=== PATIENT | male | born 1960 | race Caucasian/White ===

== ENCOUNTER 2017-08-31 07:21 | Outpatient (CLI) | payer OTHER ==
--- NOTE | 2017-08-31 10:29 | MRI ---
MRI OF RIGHT KNEE PERFORMED WITHOUT CONTRAST ENHANCEMENT: History: Patient twisted her knee approximately one month ago. FINDINGS: The ACL fibers are seen but there is no attachment seen at its femoral attachment suggesting a comple te proximal tear. Posterior cruciate ligament is intact. The lateral meniscus is normal in shape and appearance. There is a displaced flap type tear of the me dial meniscus. There is tissue displacement in the meniscal tibial recess. There is significant inter nal mucoid degeneration. The tear extends to involve the posterior horn and body region of the menisc us. There appears to be a tear within a very degenerated appearing meniscus. There is associated medi al compartment joint space narrowing. There is irregularity of the subchondral bony plate along the m edial margin of the tibia and underlying subchondral marrow edema change. Medial and lateral collateral ligaments and iliotibial band regions are unremarkable. Patellar articular cartilage is intact. Medial and lateral patellar retinaculum, quadriceps and rosa lar tendons are normal. IMPRESSION: 1. Proximal ACL tear. 2. Tear involving the posterior horn and body of the medial meniscus appears to be more of a flap typ e tear with some meniscal tissue displacement to the meniscal tibial recess. There appear to be fairl y significant interval mucoid degeneration of the posterior horn and body associated with the tear. T here is an associated area of marrow edema change along the medial edge of the femoral condyle which is felt to be on the basis of the meniscal injury and what appears to be a subchondral insufficiency fracture. POS: OFF
== END 2017-08-31 07:22 | disposition home or self-care (01) ==
LOC: MRI 07:21
PROVIDERS: ATTEND Orthopaedic Surgery
DX: M25.561 Pain in right knee (principal); S83.511A Sprain of anterior cruciate ligament of right knee, initial encounter

== ENCOUNTER 2020-09-19 08:56 | Outpatient (CLI) | payer OTHER | END 2020-09-19 08:57 | disposition home or self-care (01) | LOC: TBSIIMAG 08:56 | PROVIDERS: ATTEND Physician Assistant | DX: M25.522 Pain in left elbow (principal); M25.422 Effusion, left elbow; S56.512A Strain of other extensor muscle, fascia and tendon at forearm level, left arm, initial encounter; S53.442A Ulnar collateral ligament sprain of left elbow, initial encounter; W00.0XXA Fall on same level due to ice and snow, initial encounter ==

== ENCOUNTER 2020-12-11 18:00 | Inpatient (IN) | payer OTHER ==
[2020-12-19 14:22] VITALS: BMI 26.9
[2020-12-23] MEDS ORDERED: Tranexamic Acid 1,000 MG/10 ML VIAL ONE ×2 (07:52→14:00)
[2020-12-23] MEDS ORDERED: Sodium Chloride 0.9% 100 ML ONE (07:53)
[2020-12-23] MEDS ORDERED: Midazolam HCl 2 mg/2 ml Vial ONE ×2 (08:03→08:54)
[2020-12-23] MEDS ORDERED: Fentanyl 100 MCG/2 ML VIAL ONE ×4 (08:03→12:58)
[2020-12-23] MEDS ORDERED: Vancomycin 1.5 GRAM/300 ML BAG 1.5 GM in Premix Bag 1 BAG IVPB SCH ×2 (08:15→21:00)
[2020-12-23] MEDS ORDERED: EPINEPHrine 1 MG/ML AMP ONE (09:07)
[2020-12-23] MEDS ORDERED: Bupivacaine 0.25% HCL 30 ML VIAL ONE ×2 (09:07→09:24)
[2020-12-23] MEDS ORDERED: Famotidine/PF 20 mg/2ml Vial ONE (09:24)
[2020-12-23] MEDS ORDERED: Ondansetron PF 4 MG/2 ML Vial ONE (09:40)
[2020-12-23] MEDS ORDERED: Glycopyrrolate 0.2 MG/ML 5 ML SYRINGE ONE (09:40)
[2020-12-23] MEDS ORDERED: Lidocaine 1.5% w/Epi 1:200K 30 ML VIAL (Epid Use) ONE (09:40)
[2020-12-23] MEDS ORDERED: Ketorolac Tromethamine 30 MG/ML VIAL ONE (09:40)
[2020-12-23] MEDS ORDERED: ePHEDrine Sulfate 50 MG/10 ML VIAL ONE (09:40)
[2020-12-23] MEDS ORDERED: Lidocaine 1% PF 5 ML VIAL ONE (09:40)
[2020-12-23] MEDS ORDERED: Dexamethasone 20 MG/5 ML VIAL ONE (09:40)
[2020-12-23] MEDS ORDERED: PHENYLEPHRINE-NS 100 MCG/ML 10 ML SYRINGE ONE (09:40)
[2020-12-23] MEDS ORDERED: PROPOFOL 200 MG/20 ML VIAL ONE (09:40)
[2020-12-23] MEDS ORDERED: Promethazine HCl 25 MG/ML VIAL IM PRN ×3 (10:00→13:25)
[2020-12-23] MEDS ORDERED: Naloxone HCl 0.4 mg/ml Vial IV PRN (10:00)
[2020-12-23] MEDS ORDERED: Bupivacaine 0.25% 10 ML VIAL EPIDURAL PRN (10:00)
[2020-12-23] MEDS ORDERED: HYDROcodone/Acetaminophen 5/325 mg Tablet PO PRN (10:00)
[2020-12-23] MEDS ORDERED: Promethazine HCl 25 MG SUPP PR PRN (10:00)
[2020-12-23] MEDS ORDERED: Zolpidem Tartrate 5 MG TAB PO PRN ×2 (10:00→13:25)
[2020-12-23] MEDS ORDERED: diphenhydrAMINE 50 MG/ML VIAL IM PRN (10:00)
[2020-12-23] MEDS ORDERED: Ondansetron PF 4 MG/2 ML Vial IVP PRN ×2 (10:00→13:25)
[2020-12-23] MEDS ORDERED: Hydrocerin (Eucerin) Cream 120 gm Jar TOP PRN (10:00)
[2020-12-23] MEDS ORDERED: Naloxone HCl 0.4 mg/ml Vial IVP PRN (10:00)
[2020-12-23] MEDS ORDERED: traMADol HCl 50 MG TAB PO PRN ×2 (10:00→13:25)
[2020-12-23] MEDS ORDERED: Meperidine HCl/PF 25 MG/ML VIAL SLOW IVP PRN (10:43)
[2020-12-23] MEDS ORDERED: Promethazine HCl 25 MG/ML VIAL IVPB PRN (10:43)
[2020-12-23] MEDS ORDERED: PACU-Morphine 4MG/ML VIAL SLOW IVP PRN (10:43)
[2020-12-23] MEDS ORDERED: Fentanyl 100 MCG/2 ML VIAL SLOW IVP PRN ×2 (13:25)
[2020-12-23] MEDS ORDERED: HYDROcodone/Acetaminophen 10/325 mg Tablet PO PRN ×2 (13:25)
[2020-12-23] MEDS ORDERED: diphenhydrAMINE 25 MG CAP PO PRN (13:25)
[2020-12-23] MEDS ORDERED: Ketorolac Tromethamine 30 MG/ML VIAL IVP SCH (14:00)
[2020-12-23] MEDS ORDERED: diphenhydrAMINE 50 MG/ML VIAL ONE (14:41)
[2020-12-23] MEDS: Ketorolac Tromethamine 30 MG/ML VIAL IVP SCH ×2 (16:08→17:00)
[2020-12-23] MEDS: CEFAZOLIN 2 GM in Premix Bag 1 BAG IVPB SCH (17:00)
[2020-12-23] MEDS: Dextrose 5 %-0.45 % NaCl 1,000 ML IV SCH (17:03)
[2020-12-23] MEDS ORDERED: Docusate 100 MG CAP PO PRN (18:31)
[2020-12-23] MEDS: Carvedilol 3.125 MG TAB PO SCH (20:09)
[2020-12-23] MEDS: Rosuvastatin 10 MG TAB PO SCH (20:09)
[2020-12-23] MEDS: Amlodipine 5 MG TAB PO SCH (20:09)
[2020-12-23] MEDS: Aspirin 81 mg Enteric Coated Tablet PO SCH (20:09)
[2020-12-23] MEDS: Lisinopril/Hydrochlorothiazide 20 mg/12.5 mg Tablet PO SCH (20:09)
[2020-12-24] MEDS: diphenhydrAMINE 50 MG/ML VIAL IVP PRN ×3 (00:03→09:34)
[2020-12-24] MEDS: Ketorolac Tromethamine 30 MG/ML VIAL IVP SCH ×5 (00:03→23:28)
[2020-12-24] MEDS: CEFAZOLIN 2 GM in Premix Bag 1 BAG IVPB SCH (00:04)
[2020-12-24] MEDS: Dextrose 5 %-0.45 % NaCl 1,000 ML IV SCH ×3 (01:25→21:51)
[2020-12-24 05:56] LABS: Hemoglobin 10.7 g/dL (14.0-18.0); Mean Corpuscular HGB CONC 34.5 g/dL (32.0-36.0); Mean Corpuscular Hemoglobin 34.4 pg (27.0-31.0); Mean Corpuscular Volume 99.7 fL (78.0-98.0); Mean Platelet Volume 7.7 fL (7.4-10.4); Platelet Count 166 thou/uL (130-400); Red Blood Cell (RBC) Count 3.12 mill/uL (4.70-6.10); White Blood Cell (WBC) Count 16.7 thou/uL (4.8-10.8)
[2020-12-24 06:09] LABS: Anion Gap 10 mmol/L (10-20); BUN (Urea Nitrogen) 11 mg/dL (8.4-25.7); Calc. Creatinine Clearance 139 mL/min (70-130); Calcium 8.7 mg/dL (7.8-10.44); Carbon Dioxide 28 mmol/L (22-29); Chloride 96 mmol/L (98-107); Glucose 137 mg/dL (70-105); Sodium 130 mmol/L (136-145)
[2020-12-24] MEDS: fentaNYL Citrate/PF 500 MCG, Bupivacaine 10 ML in Sodium Chloride 0.9% 80 ML EPIDURAL SCH (06:42)
[2020-12-24] MEDS: Ferrous Gluconate 324 MG TAB PO SCH ×2 (09:16→17:02)
[2020-12-24] MEDS: Carvedilol 3.125 MG TAB PO SCH ×3 (09:17→21:46)
[2020-12-24] MEDS: Senokot S 8.6-50 MG TAB PO SCH ×2 (09:17→20:31)
[2020-12-24] MEDS: Multivitamin W/ Minerals 1 TAB PO SCH (09:17)
[2020-12-24] MEDS: Aspirin 81 mg Enteric Coated Tablet PO SCH ×2 (09:17→20:31)
[2020-12-24] MEDS: Lisinopril/Hydrochlorothiazide 20 mg/12.5 mg Tablet PO SCH ×2 (09:18→20:15)
[2020-12-24] MEDS: HYDROcodone/Acetaminophen 5/325 mg Tablet PO PRN ×2 (09:34→17:02)
[2020-12-24] MEDS: diphenhydrAMINE 25 MG CAP PO PRN (17:02)
[2020-12-24] MEDS: Amlodipine 5 MG TAB PO SCH (20:14)
[2020-12-24] MEDS: Rosuvastatin 10 MG TAB PO SCH (20:39)
[2020-12-25] MEDS: diphenhydrAMINE 25 MG CAP PO PRN (04:20)
[2020-12-25] MEDS: HYDROcodone/Acetaminophen 5/325 mg Tablet PO PRN (04:21)
[2020-12-25] MEDS: fentaNYL Citrate/PF 500 MCG, Bupivacaine 10 ML in Sodium Chloride 0.9% 80 ML EPIDURAL SCH (04:23)
[2020-12-25 06:02] LABS: Hemoglobin 8.6 g/dL (14.0-18.0); Mean Corpuscular HGB CONC 34.5 g/dL (32.0-36.0); Mean Corpuscular Hemoglobin 34.4 pg (27.0-31.0); Mean Corpuscular Volume 99.6 fL (78.0-98.0); Mean Platelet Volume 8.1 fL (7.4-10.4); Platelet Count 134 thou/uL (130-400); White Blood Cell (WBC) Count 12.7 thou/uL (4.8-10.8)
[2020-12-25 06:27] LABS: Anion Gap 11 mmol/L (10-20); BUN (Urea Nitrogen) 21 mg/dL (8.4-25.7); Calc. Creatinine Clearance 100 mL/min (70-130); Calcium 8.1 mg/dL (7.8-10.44); Carbon Dioxide 26 mmol/L (22-29); Chloride 92 mmol/L (98-107); Glucose 120 mg/dL (70-105); Potassium 3.9 mmol/L (3.5-5.1); Sodium 125 mmol/L (136-145)
[2020-12-25] MEDS: Dextrose 5 %-0.45 % NaCl 1,000 ML IV SCH (06:38)
[2020-12-25] MEDS: Ketorolac Tromethamine 30 MG/ML VIAL IVP SCH (07:05)
[2020-12-25] MEDS: Multivitamin W/ Minerals 1 TAB PO SCH (09:53)
[2020-12-25] MEDS: Ferrous Gluconate 324 MG TAB PO SCH ×2 (09:53→18:25)
[2020-12-25] MEDS: Aspirin 81 mg Enteric Coated Tablet PO SCH ×2 (09:53→20:35)
[2020-12-25] MEDS: Senokot S 8.6-50 MG TAB PO SCH ×2 (09:53→20:35)
[2020-12-25] MEDS: Carvedilol 3.125 MG TAB PO SCH ×2 (09:54→20:35)
[2020-12-25] MEDS: Acetaminophen 325 MG TAB PO PRN ×2 (09:55→21:09)
[2020-12-25] MEDS: traMADol HCl 50 MG TAB PO PRN ×2 (09:55→21:08)
[2020-12-25] MEDS: Sodium Chloride 0.9% 1,000 ML IV SCH (09:56)
[2020-12-25] MEDS: Lisinopril/Hydrochlorothiazide 20 mg/12.5 mg Tablet PO SCH (10:45)
[2020-12-25] MEDS ORDERED: Sodium Chloride 0.9% 1,000 ML IV SCH (13:30)
[2020-12-25] MEDS: Rosuvastatin 10 MG TAB PO SCH (20:35)
[2020-12-26] MEDS: Sodium Chloride 0.9% 1,000 ML IV SCH ×3 (00:50→16:43)
[2020-12-26] MEDS: HYDROcodone/Acetaminophen 10/325 mg Tablet PO PRN ×3 (05:34→19:32)
[2020-12-26 05:36] LABS: Hemoglobin 8.5 g/dL (14.0-18.0); Mean Corpuscular HGB CONC 34.1 g/dL (32.0-36.0); Mean Corpuscular Hemoglobin 33.5 pg (27.0-31.0); Platelet Count 134 thou/uL (130-400); RBC Distribution Width 11.3 % (11.5-14.5); Red Blood Cell (RBC) Count 2.53 mill/uL (4.70-6.10); White Blood Cell (WBC) Count 13.4 thou/uL (4.8-10.8)
[2020-12-26] MEDS: diphenhydrAMINE 25 MG CAP PO PRN ×3 (05:37→19:33)
[2020-12-26] MEDS: Bupivacaine 10 ML in Sodium Chloride 0.9% 90 ML EPIDURAL SCH (06:23)
[2020-12-26] MEDS: Aspirin 81 mg Enteric Coated Tablet PO SCH ×2 (08:19→20:21)
[2020-12-26] MEDS: Multivitamin W/ Minerals 1 TAB PO SCH (08:19)
[2020-12-26] MEDS: Carvedilol 3.125 MG TAB PO SCH ×2 (08:19→20:21)
[2020-12-26] MEDS: Ferrous Gluconate 324 MG TAB PO SCH ×2 (08:19→17:30)
[2020-12-26] MEDS: Senokot S 8.6-50 MG TAB PO SCH ×2 (09:40→20:21)
[2020-12-26 10:40] LABS: Anion Gap 13 mmol/L (10-20); BUN (Urea Nitrogen) 10 mg/dL (8.4-25.7); Calc. Creatinine Clearance 136 mL/min (70-130); Calcium 8.7 mg/dL (7.8-10.44); Carbon Dioxide 23 mmol/L (22-29); Chloride 96 mmol/L (98-107); Glucose 128 mg/dL (70-105); Potassium 3.7 mmol/L (3.5-5.1); Sodium 128 mmol/L (136-145)
[2020-12-26] MEDS: Rosuvastatin 10 MG TAB PO SCH (20:21)
[2020-12-27] MEDS: diphenhydrAMINE 25 MG CAP PO PRN ×6 (00:09→20:31)
[2020-12-27] MEDS: Bupivacaine 10 ML in Sodium Chloride 0.9% 90 ML EPIDURAL SCH (00:09)
[2020-12-27] MEDS: HYDROcodone/Acetaminophen 10/325 mg Tablet PO PRN ×6 (00:09→20:29)
[2020-12-27] MEDS: Sodium Chloride 0.9% 1,000 ML IV SCH ×2 (02:18→15:51)
[2020-12-27 05:23] LABS: Hemoglobin 8.1 g/dL (14.0-18.0); Mean Corpuscular Hemoglobin 34.6 pg (27.0-31.0); Mean Corpuscular Volume 98.8 fL (78.0-98.0); Mean Platelet Volume 7.8 fL (7.4-10.4); Platelet Count 161 thou/uL (130-400); RBC Distribution Width 11.4 % (11.5-14.5); Red Blood Cell (RBC) Count 2.34 mill/uL (4.70-6.10); White Blood Cell (WBC) Count 10.7 thou/uL (4.8-10.8)
[2020-12-27 05:54] LABS: Anion Gap 11 mmol/L (10-20); BUN (Urea Nitrogen) 8 mg/dL (8.4-25.7); Calc. Creatinine Clearance 139 mL/min (70-130); Calcium 8.3 mg/dL (7.8-10.44); Carbon Dioxide 25 mmol/L (22-29); Chloride 97 mmol/L (98-107); Glucose 115 mg/dL (70-105); Potassium 3.3 mmol/L (3.5-5.1); Sodium 130 mmol/L (136-145)
[2020-12-27] MEDS: Aspirin 81 mg Enteric Coated Tablet PO SCH ×2 (08:03→20:28)
[2020-12-27] MEDS: Carvedilol 3.125 MG TAB PO SCH ×2 (08:03→20:29)
[2020-12-27] MEDS: Senokot S 8.6-50 MG TAB PO SCH ×2 (08:03→20:29)
[2020-12-27] MEDS: Ferrous Gluconate 324 MG TAB PO SCH ×2 (08:03→18:20)
[2020-12-27] MEDS: Multivitamin W/ Minerals 1 TAB PO SCH (08:03)
[2020-12-27] MEDS: Rosuvastatin 10 MG TAB PO SCH (20:29)
[2020-12-28] MEDS: diphenhydrAMINE 25 MG CAP PO PRN ×3 (00:25→13:06)
[2020-12-28] MEDS: HYDROcodone/Acetaminophen 10/325 mg Tablet PO PRN ×4 (00:26→13:03)
[2020-12-28] MEDS: Sodium Chloride 0.9% 1,000 ML IV SCH (03:39)
[2020-12-28 05:52] LABS: Hemoglobin 8.2 g/dL (14.0-18.0); Mean Corpuscular HGB CONC 33.6 g/dL (32.0-36.0); Mean Corpuscular Hemoglobin 33.4 pg (27.0-31.0); Mean Corpuscular Volume 99.4 fL (78.0-98.0); Mean Platelet Volume 7.2 fL (7.4-10.4); Platelet Count 226 thou/uL (130-400); RBC Distribution Width 11.3 % (11.5-14.5); Red Blood Cell (RBC) Count 2.46 mill/uL (4.70-6.10)
[2020-12-28] MEDS: Ferrous Gluconate 324 MG TAB PO SCH (08:37)
[2020-12-28] MEDS: Aspirin 81 mg Enteric Coated Tablet PO SCH (08:37)
[2020-12-28] MEDS: Senokot S 8.6-50 MG TAB PO SCH (08:38)
[2020-12-28] MEDS: Carvedilol 3.125 MG TAB PO SCH (08:38)
[2020-12-28] MEDS: Multivitamin W/ Minerals 1 TAB PO SCH (08:38)
[2020-12-28 12:04] VITALS: BP 122/70; TEMP 98.1
== END 2020-12-28 13:45 | DRG 462 ==
LOC: SJJU 12-23 07:04
PROVIDERS: ADMIT Orthopaedic Surgery; ATTEND Orthopaedic Surgery
PROC: 0SRD0J9 Replacement of Left Knee Joint with Synthetic Substitute, Cemented, Open Approach (ICD-10-PCS; principal; 2020-12-23)
PROC: 0SRC0J9 Replacement of Right Knee Joint with Synthetic Substitute, Cemented, Open Approach (ICD-10-PCS; 2020-12-23)
PROC: 30233N1 Transfusion of Nonautologous Red Blood Cells into Peripheral Vein, Percutaneous Approach (ICD-10-PCS; 2020-12-25)
DX: M17.0 Bilateral primary osteoarthritis of knee (principal); E87.1 Hypo-osmolality and hyponatremia; I10 Essential (primary) hypertension; E78.5 Hyperlipidemia, unspecified; Z88.5 Allergy status to narcotic agent; Z79.899 Other long term (current) drug therapy
CPT/HCPCS: 36415; 36430; 80048; 85027; 86850; 86900; 86901; C1713; C1776; J0171; J0690; J1100; J1200; J1885; J2001; J2250; J2405; J2704; J3010; J3370; J3490; P9016; Q0163; S0020; S0028

== ENCOUNTER 2021-06-05 07:49 | Outpatient (CLI) | payer OTHER | END 2021-06-05 07:50 | disposition home or self-care (01) | LOC: TBSIIMAG 07:49 | PROVIDERS: ATTEND Neurological Surgery | DX: M54.50 Low back pain, unspecified (principal); M21.371 Foot drop, right foot; G89.29 Other chronic pain; R60.0 Localized edema; M47.816 Spondylosis without myelopathy or radiculopathy, lumbar region | CPT/HCPCS: 72148 ==

== ENCOUNTER 2021-06-10 12:50 | Outpatient (CLI) | payer OTHER | END 2021-06-10 12:51 | disposition home or self-care (01) | LOC: TBSIIMAG 12:50 | PROVIDERS: ATTEND Neurological Surgery | DX: M47.26 Other spondylosis with radiculopathy, lumbar region (principal) | CPT/HCPCS: 72110 ==

== ENCOUNTER 2021-08-06 12:32 | Outpatient (CLI) | payer OTHER ==
[2021-08-06 14:40] LABS: Hemoglobin 14.2 g/dL (13.5-17.5); Mean Corpuscular HGB CONC 33.7 g/dL (32.0-36.0); Mean Corpuscular Hemoglobin 32.6 pg (27.0-33.0); Mean Corpuscular Volume 96.6 fl (81.2-95.1); Mean Platelet Volume 10.4 fl (7.4-10.4); Platelet Count 192 10x3/uL (150-450); RBC Distribution Width 12.2 % (11.5-14.5); Red Blood Cell (RBC) Count 4.36 10x6/uL (4.32-5.72); White Blood Cell (WBC) Count 8.9 10x3/uL (3.5-10.5)
[2021-08-06 14:57] LABS: INR-International Normal Ratio 0.9; PTT 25.6 sec (22.0-33.0); Prothrombin Time 10.3 sec (9.5-12.1)
[2021-08-08 00:06] LABS: SARS-CoV-2 PCR by NAA Not Detected (NotDetected)
== END 2021-08-06 12:33 | disposition home or self-care (01) ==
LOC: LABBT 12:32
PROVIDERS: ATTEND Neurological Surgery
DX: Z01.818 Encounter for other preprocedural examination (principal); Z20.822 Contact with and (suspected) exposure to COVID-19
CPT/HCPCS: 85027; 85610; 85730; 93005; 93010; U0003; U0005

== ENCOUNTER 2021-08-11 05:55 | Inpatient (IN) | payer OTHER ==
[2021-08-11] MEDS ORDERED: Bupivacaine PF 0.5% 30 ML VIAL ONE (06:12)
[2021-08-11] MEDS ORDERED: Thrombin 5000 UNITS/5 ML VIAL ONE (06:12)
[2021-08-11] MEDS ORDERED: EPINEPHrine 1 MG/ML AMP ONE (06:12)
[2021-08-11] MEDS ORDERED: Neomycin-Polymyxin 1 ML AMP ONE (06:12)
[2021-08-11] MEDS ORDERED: Fentanyl 100 MCG/2 ML VIAL ONE ×2 (06:45→15:34)
[2021-08-11] MEDS ORDERED: HYDROmorphone 2 MG/ML VIAL ONE (06:45)
[2021-08-11] MEDS ORDERED: ceFAZolin 2 GM/Dextrose 50 ML IVPB ONE (06:51)
[2021-08-11] MEDS ORDERED: Midazolam HCl 2 mg/2 ml Vial ONE (07:00)
[2021-08-11] MEDS ORDERED: Rocuronium Bromide 10 MG/ML (10ML VIAL) ONE (07:05)
[2021-08-11] MEDS ORDERED: Dexamethasone 20 MG/5 ML VIAL ONE (07:05)
[2021-08-11] MEDS ORDERED: Lidocaine 1% PF 5 ML VIAL ONE (07:05)
[2021-08-11] MEDS ORDERED: PHENYLEPHRINE-NS 100 MCG/ML 10 ML SYRINGE ONE ×2 (07:05→08:01)
[2021-08-11] MEDS ORDERED: Glycopyrrolate 0.2 MG/ML 5 ML SYRINGE ONE (07:05)
[2021-08-11] MEDS ORDERED: Vecuronium 10 MG VIAL ONE (07:05)
[2021-08-11] MEDS ORDERED: PROPOFOL 200 MG/20 ML VIAL ONE (07:05)
[2021-08-11] MEDS ORDERED: Ondansetron PF 4 MG/2 ML Vial ONE (07:05)
[2021-08-11] MEDS ORDERED: Phenylephrine 10 MG/ML VIAL ONE ×2 (08:06→11:27)
[2021-08-11] MEDS ORDERED: Rocuronium Bromide 50 MG/5 ML VIAL ONE (10:36)
[2021-08-11] MEDS ORDERED: Bacitracin Zinc Ointment 30 gm TUBE ONE (14:30)
[2021-08-11] MEDS ORDERED: Fentanyl 100 MCG/2 ML VIAL SLOW IVP PRN ×2 (14:40)
[2021-08-11] MEDS ORDERED: diphenhydrAMINE 25 MG CAP PO PRN (14:40)
[2021-08-11] MEDS ORDERED: Promethazine HCl 12.5 MG SUPP PR PRN (14:40)
[2021-08-11] MEDS ORDERED: Bisacodyl 10 MG SUPP PR PRN (14:40)
[2021-08-11] MEDS ORDERED: traMADol HCl 50 MG TAB PO PRN ×2 (14:40)
[2021-08-11] MEDS ORDERED: diphenhydrAMINE 50 MG/ML VIAL IVP PRN (14:40)
[2021-08-11] MEDS ORDERED: Acetaminophen 650 MG Suppository PR PRN (14:40)
[2021-08-11] MEDS ORDERED: Promethazine HCl 25 MG/ML VIAL IM PRN (14:40)
[2021-08-11] MEDS ORDERED: Mag-Al 1200 mg/1200 mg/30 ML UDCUP PO PRN (14:40)
[2021-08-11] MEDS ORDERED: Promethazine 25 MG TAB PO PRN (14:40)
[2021-08-11] MEDS ORDERED: Ondansetron PF 4 MG/2 ML Vial IVP PRN (14:40)
[2021-08-11] MEDS ORDERED: Acetaminophen 325 MG TAB PO PRN (14:40)
[2021-08-11] MEDS ORDERED: Scopolamine 1.5 mg/72 hour Patch TD SCH (15:00)
[2021-08-11] MEDS: tiZANidine HCl 4 MG TAB PO SCH ×2 (18:55→20:32)
[2021-08-11] MEDS ORDERED: ceFAZolin 2 GM/Dextrose 50 ML 2 GM in Premix Bag 1 BAG IVPB SCH (20:00)
[2021-08-11] MEDS ORDERED: CEFAZOLIN 2 GM, Admixture Fee 1 EACH in Sodium Chloride 0.9% 100 ML IVPB SCH (20:30)
[2021-08-11] MEDS: Carvedilol 3.125 MG TAB PO SCH (20:32)
[2021-08-11] MEDS: Acetaminophen/Codeine 30-300mg Tablet PO PRN ×2 (20:32→23:34)
[2021-08-11] MEDS: Milk Of Magnesia 30 ML UDCUP PO PRN (20:32)
[2021-08-11] MEDS: Rosuvastatin 10 MG TAB PO SCH (20:32)
[2021-08-11] MEDS: Sodium Chloride 0.9% 1,000 ML IV SCH (21:13)
[2021-08-11 22:29] VITALS: BMI 26.2
[2021-08-12] MEDS: Acetaminophen/Codeine 30-300mg Tablet PO PRN ×6 (04:12→21:53)
[2021-08-12] MEDS: CEFAZOLIN 2 GM, Admixture Fee 1 EACH in Sodium Chloride 0.9% 100 ML IVPB SCH ×3 (04:15→20:48)
[2021-08-12] MEDS: Tamsulosin HCl 0.4 MG CAP PO SCH (06:22)
[2021-08-12] MEDS: Sodium Chloride 0.9% 1,000 ML IV SCH ×2 (06:23→16:39)
[2021-08-12] MEDS: tiZANidine HCl 4 MG TAB PO SCH ×3 (08:42→20:48)
[2021-08-12] MEDS: Carvedilol 3.125 MG TAB PO SCH (08:53)
[2021-08-12] MEDS ORDERED: Amlodipine 5 MG TAB PO SCH (09:00)
[2021-08-12] MEDS ORDERED: Lisinopril 20 MG TAB PO SCH (09:00)
[2021-08-12 10:35] LABS: #Lymphocytes 1.1 thou/uL (1.20-3.40); #Monocytes 1.8 thou/uL (0.11-0.59); #Neutrophils 10.1 thou/uL (1.40-6.50); %Basophils 0.1 % (0.0-1.0); %Eosinophils 0.2 % (0.0-10.0); %Lymphocytes 8.7 % (21.0-51.0); %Monocytes 13.4 % (0.0-10.0); %Neutrophils 77.7 % (42.0-75.0); Hemoglobin 11.1 g/dL (14.0-18.0); Mean Corpuscular HGB CONC 34.6 g/dL (32.0-36.0); Mean Corpuscular Hemoglobin 34.6 pg (27.0-31.0); Mean Platelet Volume 7.6 fL (7.4-10.4); Platelet Count 154 thou/uL (130-400); RBC Distribution Width 11.2 % (11.5-14.5)
[2021-08-12] MEDS: Milk Of Magnesia 30 ML UDCUP PO PRN (15:05)
[2021-08-12] MEDS ORDERED: Chloraseptic Spray 180 ml Bottle PO PRN (15:48)
[2021-08-12] MEDS: Rosuvastatin 10 MG TAB PO SCH (20:48)
[2021-08-13] MEDS: Acetaminophen/Codeine 30-300mg Tablet PO PRN ×3 (01:49→08:55)
[2021-08-13] MEDS: CEFAZOLIN 2 GM, Admixture Fee 1 EACH in Sodium Chloride 0.9% 100 ML IVPB SCH ×2 (04:16→13:04)
[2021-08-13] MEDS: Tamsulosin HCl 0.4 MG CAP PO SCH (05:02)
[2021-08-13] MEDS: Sodium Chloride 0.9% 1,000 ML IV SCH (06:52)
[2021-08-13] MEDS: tiZANidine HCl 4 MG TAB PO SCH ×2 (08:55→14:15)
[2021-08-13] MEDS ORDERED: Amlodipine 5 MG TAB PO SCH (10:00)
[2021-08-13 11:31] VITALS: BP 108/67; TEMP 97.6
[2021-08-14] MEDS ORDERED: Amlodipine 5 MG TAB PO SCH (09:00)
== END 2021-08-13 14:30 | disposition home or self-care (01) | DRG 455 ==
LOC: SDC 05:55 → SURG B 14:40
PROVIDERS: ADMIT Neurological Surgery; ATTEND Neurological Surgery
PROC: 0SG00AJ Fusion of Lumbar Vertebral Joint with Interbody Fusion Device, Posterior Approach, Anterior Column, Open Approach (ICD-10-PCS; principal; 2021-08-11)
PROC: 0SG0071 Fusion of Lumbar Vertebral Joint with Autologous Tissue Substitute, Posterior Approach, Posterior Column, Open Approach (ICD-10-PCS; 2021-08-11)
PROC: 0SG30AJ Fusion of Lumbosacral Joint with Interbody Fusion Device, Posterior Approach, Anterior Column, Open Approach (ICD-10-PCS; 2021-08-11)
PROC: 0SG3071 Fusion of Lumbosacral Joint with Autologous Tissue Substitute, Posterior Approach, Posterior Column, Open Approach (ICD-10-PCS; 2021-08-11)
PROC: 01NB0ZZ Release Lumbar Nerve, Open Approach (ICD-10-PCS; 2021-08-11)
PROC: 00NY0ZZ Release Lumbar Spinal Cord, Open Approach (ICD-10-PCS; 2021-08-11)
PROC: 00BY0ZZ Excision of Lumbar Spinal Cord, Open Approach (ICD-10-PCS; 2021-08-11)
DX: M48.062 Spinal stenosis, lumbar region with neurogenic claudication (principal); M48.07 Spinal stenosis, lumbosacral region; M99.73 Connective tissue and disc stenosis of intervertebral foramina of lumbar region; Z20.822 Contact with and (suspected) exposure to COVID-19; M54.16 Radiculopathy, lumbar region; M43.06 Spondylolysis, lumbar region; I10 Essential (primary) hypertension; K21.9 Gastro-esophageal reflux disease without esophagitis; E78.5 Hyperlipidemia, unspecified; Z96.653 Presence of artificial knee joint, bilateral
CPT/HCPCS: 36415; 76000; 85025; C1713; C1768; C1776; J0171; J0690; J1100; J1170; J2250; J2370; J2405; J2704; J3010; J3370; J3490; S0020

== ENCOUNTER 2022-06-15 05:44 | Day surgery (SDC) | payer OTHER ==
[2022-06-14 10:06] VITALS: BMI 26.4
[~2022-06-15 05:44] MED LIST: EPINEPHrine 0.3 MG in Ophthalmic Irrigation Solution 500 ML IRR SCH
[2022-06-15] MEDS ORDERED: Phenylephrine 2.5% Ophth Soln 5 ML BOT ONE (06:19)
[2022-06-15] MEDS ORDERED: Cyclopentolate 1% Opth Drop 2 ML BOT ONE (06:19)
[2022-06-15] MEDS ORDERED: Midazolam HCl 2 mg/2 ml Vial ONE (06:24)
[2022-06-15] MEDS ORDERED: PROPOFOL 20 ML ONE (06:25)
[2022-06-15] MEDS ORDERED: fentaNYL PF 100 MCG/2 ML SYRINGE ONE (06:25)
[2022-06-15] MEDS ORDERED: Triamcinolone 40 MG/ML VIAL ONE (07:05)
[2022-06-15] MEDS ORDERED: Lidocaine 1% PF 5 ML VIAL ONE (07:05)
[2022-06-15] MEDS ORDERED: Bupivacaine 0.75% 10 ML VIAL ONE (07:05)
[2022-06-15] MEDS ORDERED: Maxitrol 0.1% Opth Oint 3.5 GM TUBE ONE (07:05)
[2022-06-15] MEDS ORDERED: Lidocaine 4% PF 5 ML AMP ONE (07:05)
[2022-06-15] MEDS ORDERED: CEFAZOLIN 1 GM VIAL ONE (07:05)
== END 2022-06-15 08:15 | disposition home or self-care (01) ==
LOC: SDC 05:44
PROVIDERS: ATTEND Ophthalmology Retina Specialist
DX: H33.022 Retinal detachment with multiple breaks, left eye (principal); H43.392 Other vitreous opacities, left eye; Z79.82 Long term (current) use of aspirin; Z79.899 Other long term (current) drug therapy; Z88.5 Allergy status to narcotic agent; Z98.41 Cataract extraction status, right eye; Z98.42 Cataract extraction status, left eye; Z96.1 Presence of intraocular lens
CPT/HCPCS: J0171; J2250; J2704

== ENCOUNTER 2022-06-29 05:55 | Day surgery (SDC) | payer OTHER ==
[2022-06-24 10:58] VITALS: BMI 26.3
[2022-06-29] MEDS ORDERED: Cyclopentolate 1% Opth Drop 2 ML BOT ONE (06:02)
[2022-06-29] MEDS ORDERED: Phenylephrine 2.5% Ophth Soln 5 ML BOT ONE (06:02)
[2022-06-29] MEDS ORDERED: EPINEPHrine 0.3 MG in Ophthalmic Irrigation Solution 500 ML IRR SCH (06:15)
[2022-06-29] MEDS ORDERED: Midazolam HCl 2 mg/2 ml Vial ONE (06:45)
[2022-06-29] MEDS ORDERED: PROPOFOL 20 ML ONE (06:45)
[2022-06-29] MEDS ORDERED: Fentanyl 100 MCG/2 ML VIAL ONE (06:45)
[2022-06-29] MEDS ORDERED: Lidocaine 4% PF 5 ML AMP ONE (07:11)
[2022-06-29] MEDS ORDERED: PROPOFOL 200 MG/20 ML VIAL ONE (07:11)
[2022-06-29] MEDS ORDERED: Lidocaine 1% PF 5 ML VIAL ONE (07:11)
[2022-06-29] MEDS ORDERED: Triamcinolone 40 MG/ML VIAL ONE (07:11)
[2022-06-29] MEDS ORDERED: CEFAZOLIN 1 GM VIAL ONE (07:11)
[2022-06-29] MEDS ORDERED: Maxitrol 0.1% Opth Oint 3.5 GM TUBE ONE (07:11)
[2022-06-29] MEDS ORDERED: Bupivacaine 0.75% 10 ML VIAL ONE (07:11)
== END 2022-06-29 08:25 | disposition home or self-care (01) ==
LOC: SDC 05:55
PROVIDERS: ATTEND Ophthalmology Retina Specialist
PROC: 08T43ZZ Resection of Right Vitreous, Percutaneous Approach (ICD-10-PCS; principal; 2022-06-29)
DX: H43.391 Other vitreous opacities, right eye (principal); Z79.82 Long term (current) use of aspirin; Z79.899 Other long term (current) drug therapy; Z88.5 Allergy status to narcotic agent; Z98.41 Cataract extraction status, right eye; Z98.42 Cataract extraction status, left eye; Z96.1 Presence of intraocular lens
CPT/HCPCS: J0171; J0690; J2250; J2704; J3010; J3301; J3490